=== PATIENT | male | born 1980 | race Caucasian/White ===

== ENCOUNTER 2019-05-19 11:18 | Emergency (ER) | payer OTHER ==
--- NOTE | 2019-05-19 11:45 | EDM.PDOC ---
ED HPI GENERAL MEDICAL PROBLEM - General Chief Complaint: ENT Problem Stated Complaint: BUG EATING AT EAR Time Seen by Provider: 05/19/19 11:42 Source of Information: Reports: Patient, RN Notes Reviewed History Limitations: Reports: No Limitations - History of Present Illness INITIAL COMMENTS - FREE TEXT/NARRATIVE: 38-year-old gentleman presents to ED with a bug in his left ear this just happened prior to presentation Past Medical History - Past Health History Medical/Surgical History: Denies Medical/Surgical History Social & Family History - Tobacco Use Smoking Status *Q: Never Smoker ED ROS ENT - Review of Systems Review Of Systems: See Below Constitutional: Reports: No Symptoms HEENT: Reports: Ear Pain ED EXAM, ENT - Physical Exam Exam: See Below Text/Narrative:: Examination of the left ear I do appreciate an insect this was easily removed with a alligator forceps and appears to be an John boar beetle Departure - Departure Time of Disposition: 11:45 Disposition: Home, Self-Care 01 Condition: Good Clinical Impression: Foreign body in ear Qualifiers: Encounter type: initial encounter Laterality: left Qualified Code(s): T16.2XXA - Foreign body in left ear, initial encounter - Discharge Information Referrals: PCP,None [Primary Care Provider] - Additional Instructions: Follow-up with primary care as needed - Assessment/Plan Plan: Assessment Acuity = acute Site and laterality = foreign body left ear Etiology = john boar beetle Manifestations = [ none Location of injury = Home Lab values = none Plan follow-up primary care as needed This note was dictated using [employer] voice recognition software please call with any questions on syntax or grammar.
== END 2019-05-19 11:54 | disposition home or self-care (01) ==
LOC: JP.ED 11:18
DX: T16.2XXA Foreign body in left ear, initial encounter (principal)
CPT/HCPCS: 69200; 99282